=== PATIENT | female | born 1930 | race Caucasian/White ===

== ENCOUNTER 2016-10-10 13:31 | Inpatient (IN) | payer MEDICARE, OTHER, MEDICAID ==
[~2016-10-10] VITALS: Ht 147.3 cm; Wt 49.0 kg
[~2016-10-10 13:31] MED LIST: ASPI-973 PO; ESCI5TAB PO; GEMF600T3 PO; LEVO50TA6 PO; METF500T4 PO; SLO64 PO
[2016-10-10 13:47] VITALS: BP 140/60; PULSE 78; O2SAT 99
--- NOTE | 2016-10-10 14:08 | ED.REPORT ---
HPI-Trauma Minor / Fall Date of Service Oct 10, 2016 ED Provider: Fatou Sebastián Patient is an 86 year old female who presents to the ED via EMS s/p a ground level fall at [facility] at 1315 today. She was trying to sit down in her chair but only made it on nursing home causing her to fall. She hit her head and is having R knee pain that is exacerbated by movement. She denies neck pain, abdominal pain, hip pain, headache, LOC, or any other symptoms. Patient does not take blood thinners. She last ate at 1100. Nursing Notes Stated Complaint: GL FALL Chief Complaint: Multiple Trauma/Fall Nursing Notes Reviewed: Yes Allergies: Coded Allergies: Penicillins (Verified Allergy, Severe, 02/01/15) Scheduled Aspirin (Aspirin) 81 Mg Tablet.dr 81 MG PO DAILY Escitalopram Oxalate (Lexapro) 5 Mg Tablet 10 MG PO HS Gemfibrozil (Gemfibrozil) 600 Mg Tablet 600 MG PO BID Levothyroxine (Levothyroxine) 50 Mcg Tablet 50 MCG PO DAILY Magnesium Chloride (Slow-Mag) 64 Mg Tablet 64 MG PO DAILY Metformin (Metformin) 500 Mg Tablet 1,000 MG PO BID General Time Seen by MD: 14:08 Chief Complaint Fall Hx Obtained From: Patient, Daughter Arrived By: Ambulance Onset Occurred: Just prior to arrival Symptom Duration: Since onset Past Medical History Past Medical History Notes: PCP: Dr. Leiva but the pt prefers Dr. Dewey Past Medical History 1. Obstructive sleep apnea 2. Type 2 diabetes mellitus 3. Hypertension 4. Hyperlipidemia 5. Osteoporosis 6. History of multiple UTIs in the past 7. History of hyponatremia and hypokalemia 8. Vaginal prolapse 9. Dementia Reports: Depression, Thyroid disease Past Surgical History 1. Hysterectomy 2. Appendectomy 3. Tonsillectomy Family History Noncontributory Smoking History Never Smoker Social History [facility] in [facility]. Alcohol Use: Denies alcohol use Drug Use: Denies drug use Other Social History: Local resident Occupation Former [employer] worker Ambulatory Status Independent Review of Systems Musculoskeletal: Reports: Joint pain (R knee, no hip pain), Denies: Neck pain Neurologic: Denies: Change LOC, Headache Complete sys rev & neg: except as marked. GI: Denies: Abdominal pain Physical Exam Initial Vital Signs Vital Signs (First) Date Time Temp Pulse Resp B/P Pulse Ox O2 Delivery O2 Flow Rate FiO2 10/10/16 13:47 36.9 78 140/60 99 Room Air Initial VS: Reviewed Head / Eyes: Atraumatic, Normocephalic, PERRL Respiratory: No respiratory distress Abdomen / GI: Soft, Non-tender Skin: Warm, Dry Neurologic: Alert, Oriented, Nonfocal Psychiatric: Mood/affect normal, Behavior normal, Normal thought content General/Constitutional: Awake, Alert, Well developed Neck: Atraumatic, Supple Right Hip: Negative: Deformity present, Leg shortened, Open fracture present, Swelling present..., Tenderness present..., Warmth present Right Knee: Positive: ROM painful Interpretation & Diagnostics Lab Results Interpretation Result Diagram: 10/10/16 1545 10/10/16 1545 Test 10/10/16 15:02 10/10/16 15:15 10/10/16 15:45 Urine Color Yellow (YELLOW) Urine Appearance Clear (CLEAR,HAZY) Urine pH 5.5 (5.0-8.0) Urine Specific [place] 1.025 (1.003-1.035) Urine Protein Tracemg/dL (NEG,TRACE) Urine Glucose (UA) Negativemg/dL (NEGATIVE) Urine Ketones 15mg/dL (NEGATIVE) Urine Occult Blood Trace (NEGATIVE) Urine Nitrite Positive (NEGATIVE) Urine Bilirubin Negative (NEGATIVE) Urine Urobilinogen Normalmg/dL (NORMAL) Urine Leukocyte Esterase Negative (NEGATIVE) Urine RBC 0-2/hpf (0-2) Urine WBC 0-5/hpf (0-5) Urine Epithelial Cells Few/hpf (NONE-MOD) Urine Crystals None seen (NONE SEEN) Urine Bacteria Many/hpf (NONE-FEW) Urine Hyaline Casts None/lpf (NONE) Urine Granular Casts None seen (NONE SEEN) Urine Waxy Casts None seen (NONE SEEN) Urine Red Blood Cell Casts None seen (NONE SEEN) Urine White Blood Cell Casts None seen (NONE SEEN) Urine Mucus None seen (None Seen) Urine Trichomonas None seen (NONE SEEN) Urine Yeast None (NONE SEEN) Urinalysis Comment None Urine Culture Reflexed Indicated Hold Urine Received (Received) White Blood Count 6.3th/mm3 (3.8-10.1) Red Blood Count 3.63mil/mm3 (3.90-5.20) Hemoglobin 10.7g/dL (12.0-15.6) Hematocrit 33.0% (35.0-46.0) Mean Corpuscular Volume 90.9fL (81-100) Mean Corpuscular Hemoglobin 29.5pg (27.0-35.0) Mean Corpuscular Hemoglobin Concent 32.4% (32.0-37.0) Red Cell Distribution Width 14.6% (12.3-15.4) Platelet Count 250bil/L (150-400) Neutrophils (%) (Auto) 65.3% (40-74) Lymphocytes (%) (Auto) 23.0% (14-46) Monocytes (%) (Auto) 10.6% (4-12) Eosinophils (%) (Auto) 0.3% (0-5) Basophils (%) (Auto) 0.3% (0-3) Sodium Level 137mEq/L (134-144) Potassium Level 4.3mEq/L (3.5-5.2) Chloride Level 94mEq/L (97-108) Carbon Dioxide Level 16mmol/L (18-29) Blood Urea Nitrogen 32mg/dL (8-27) Creatinine 1.30mg/dL (0.57-1.00) Estimat Glomerular Filtration Rate 56mL/min (>59) Glucose Level 60mg/dL (60-99) Calcium Level 9.0mg/dL (8.5-10.1) Total Bilirubin 0.2mg/dL (0.0-1.2) Aspartate Amino Transf (AST/SGOT) 15U/L (0-50) Alanine Aminotransferase (ALT/SGPT) 10U/L (0-32) Alkaline Phosphatase 44U/L (25-165) Total Protein 6.8g/dL (6.4-8.4) Albumin 4.3g/dL (3.4-5.0) ECG Interpretation ECG Interpretation: Sinus rate 69 Time: 15:39 Interpreted by: ED physician X-Ray Chest Interpretation Chest Xray Interpretation: IMPRESSION: No definite trauma found. Dictated by: Cody Fuentes M.D. on 10/10/2016 at 15:02 Approved by: Cody Fuentes M.D. on 10/10/2016 at 15:03 View: Portable, 1 view Interpretation / Wet Read by: Interpret - Radiologist X-Ray Interpretation Xray Interpretation: IMPRESSION: Right intertrochanteric hip fracture in near-anatomic alignment. Dictated by: Cody Fuentes M.D. on 10/10/2016 at 15:03 Approved by: Cody Fuentes M.D. on 10/10/2016 at 15:04 Study Performed: X-RAY PELVIS W/LAT HIP (RT) X-Ray Ordered: Pelvis Interpretation / Wet Read by: Interpret - Radiologist Re-Eval/Medical Decision Re-Evaluation/Progress : Time of Eval: 15:04 Re-Evaluation/Progress Note: Discussed imaging results and need for admission. Patient understands and agrees with plan. All questions addressed at this time. Consultation : Referral / Consult Name: Leona Bryson MD Consulted With: Hospitalist Call Returned at: 16:03 Fabrication Department Supervisor: Will see patient, Agrees with eval, Agrees with plan, Accepts admit Note: Discussed patient's case. Accepts admit. Counseled Regarding: Diagnosis, Lab results, Need for admission Discharge & Departure Impression: Primary Impression: Intertrochanteric fracture of right hip Encounter type: initial encounter Fracture type: closed Qualified Code: S72.141A - Displaced intertrochanteric fracture of right femur, initial encounter for closed fracture Disposition: ADMITTED TO HOSPITAL Referrals: Hollie Leiva (PCP) Scribe Attestation Portions of this note were transcribed by Stephanie Spring. I, Dr. Lainez personally performed the history, physical exam and medical decision-making; I reviewed and confirmed the accuracy of the information in the transcribed note. Signed by: Stephanie Spring 10/10/16, 4032 copies to: Hollie Leiva Kirk H MD Oct 10, 2016 14:08 STEPHANIE SPRING Oct 10, 2016 14:15
[2016-10-10] MEDS ORDERED: HYDROmorphone 0.5 mg/0.5 mL iSecure Syringe IVPUSH PRN (15:05)
[2016-10-10] MEDS ORDERED: Ondansetron 2 mg/mL 2 mL Inj IV PRN (15:05)
--- NOTE | 2016-10-10 15:05 | DRSVH ---
PROCEDURE: X-RAY CHEST ONE VIEW ([id number]) INDICATIONS: trauma TECHNIQUE: One view of the chest was acquired. COMPARISON: [facility], CR, XR CHEST 1VW (PORTABLE), 07/28/2016, 16:12. [facility], CT, CHEST/ABD/PELVIS/ WO CON (PNL), 01/04/2015, 12:33. [facility], CT, CHEST W/O CONTRAST, 01/24/2014, 9:33. [facility], CT, CHEST/ABD/PELVIS W/CON (PNL), 12/28/2013, 12: 45. FINDINGS: Surgical changes and devices: None. Lungs and pleura: No pleural effusions or pneumothorax. Lungs are clear. Mediastinum: Mediastinal contours appear normal. Heart size is normal. Bones and chest wall: No suspicious bony lesions. Overlying soft tissues appear unremarkable. IMPRESSION: No definite trauma found. Dictated by: Cody Fuentes M.D. on 10/10/2016 at 15:02 Approved by: Cody Fuentes M.D. on 10/10/2016 at 15:03
--- NOTE | 2016-10-10 15:06 | DRSVH ---
PROCEDURE: X-RAY PELVIS W/LAT HIP (RT) ([id number]) INDICATIONS: trauma TECHNIQUE: AP pelvis with lateral view(s) of the right hip(s). COMPARISON: None. FINDINGS: Bones: No dislocations. Pelvic ring appears intact. No suspicious bony lesions. There is an inter trochanteric right hip fracture, minimally displaced Soft tissues: The visualized bowel gas pattern is normal. No suspicious soft tissue calcifications. IMPRESSION: Right intertrochanteric hip fracture in near-anatomic alignment. Dictated by: Cody Fuentes M.D. on 10/10/2016 at 15:03 Approved by: Cody Fuentes M.D. on 10/10/2016 at 15:04
[2016-10-10] MEDS ORDERED: Acetaminophen IV 1,000 MG in IV Premix 1 EACH IV ONE (15:10)
[2016-10-10 15:23] VITALS: BP 137/56; PULSE 72; O2SAT 100
[2016-10-10 15:48] LABS: APPEARANCE,URINE CLEAR (CLEAR,HAZY); COLOR,URINE YELLOW (YELLOW); PH,URINE 5.5 (5.0-8.0)
[2016-10-10 15:59] LABS: OCCULT BLOOD,URINE TRACE (NEGATIVE); UROBILINOGEN,URINE NORMAL (NORMAL)
[2016-10-10 16:05] LABS: BASOPHILS % (AUTO) 0.3 % (0-3); EOSINOPHILS % (AUTO) 0.3 % (0-5); MONOCYTES % (AUTO) 10.6 % (4-12); Mean Corpuscular Hemoglobin 29.5 pg (27.0-35.0); Mean Corpuscular Volume 90.9 fL (81-100); NEUTROPHILS % (AUTO) 65.3 % (40-74); Platelet Count 250 bil/L (150-400)
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
[2016-10-10] MEDS: 0.9% Sodium Chloride 1,000 ML IV SCH (17:12)
[2016-10-10] MEDS ORDERED: Alum-Mag Hydrox-Simeth 30 mL Suspension PO PRN (17:15)
[2016-10-10] MEDS ORDERED: Ondansetron 2 mg/mL 2 mL Inj IVPUSH PRN (17:15)
[2016-10-10] MEDS ORDERED: 0.9% Sodium Chloride 1,000 ML IV SCH (17:20)
[2016-10-10] MEDS ORDERED: Polyethylene Glycol (PEG) 17 Gm Powder PO PRN (17:20)
[2016-10-10] MEDS ORDERED: MELA1TAB9 PO (17:43)
[2016-10-10] MEDS ORDERED: ZOLP5TAB6 PO (17:43)
[2016-10-10 17:52] VITALS: BP 155/73; PULSE 61; RESP 16; O2SAT 100
--- NOTE | 2016-10-10 19:00 | NUR ---
ADMIT TO [facility] Patient arrived to rm 1016 on ER [facility], was transferred over to hospital bed with slide board and 3 person assist. Alert and oriented to self, unable to recall time or place. Hx of dementia at baseline. Points to R groin/outer thigh area when asked about pain, states it "hurts a little", facial grimacing noted with movement. Repositioned patient and placed ice pack to R thigh. Admission assessment and med rec completed by admissions nurse. [place] alarm in place on bed. IV fluids imitated. BG was 61 @ 1800, gave patient OJ and had her order dinner. Daughter at bedside with patient.
[2016-10-10] MEDS ORDERED: Magnesium Sulf 2 Gm/50mL Water 2 GM in IV Premix 1 EACH IV ONE (19:05)
--- NOTE | 2016-10-10 19:28 | PCM.HPMED ---
Subjective Date of Service Oct 10, 2016 Primary Provider: Admitting Physician: Leona Bryson MD Primary Care Physician: Weston Moreira PA-C Attending Physician: Leona Bryson MD Admit Status: From the Emergency Department Chief Complaint: She was at [employer] this afternoon and as she sat down on the bench she misjudged and was only snf on the bench. This caused her to fall onto her right hip on the ground. Her daughter tried to get her up with help but she had such severe pain that they left her on the ground keeping her comfortable until the medics arrived. Her x-ray in the emergency department shows an intertrochanteric fracture of the right hip. History of Present Illness: She was having a good day, going out with her daughter to get coffee at [employer] on their way to shopping today. She had no particular symptoms other than her chronic memory loss/dementia. She misjudged the seating arrangement and fell onto the floor. She has been seen by Dr. Gamble from the orthopedic service and will likely undergo ORIF or hip replacement in the morning. Her medical history includes diabetes mellitus type II, hypothyroidism, depression, dementia , hypomagnesemia, hyper lipidemia. She has been stable on her current medications for some time. She lives in the [facility] apartment complex in [place]. Her daughter visits her regularly and was taking her out for a looked forward to shopping trip today Review of Systems: There has been no coughing, shortness breath, chest pain, nausea, vomiting, diarrhea, blood in stool, bleeding, joint pain other than the new fracture, seizures, headaches, sore throat, dysuria, new allergies, hearing loss. Positive for joint pain and memory loss. Allergies Coded Allergies: Penicillins (Verified Allergy, Severe, 02/01/15) Home Medications Gemfibrozil Levothyroxine Metformin Slow-Mag Lexapro PMH Diabetes mellitus type 2 Hypothyroidism Hyperlipidemia Hypomagnesemia Depression Surgical History Hysterectomy Family History No history of osteoporosis or hip fracture. Her mother of old age. Social History Occupation: she is retired from the [employer] Hx Alcohol Use: No Hx Substance Use: No Hx Tobacco Use: No Smoking Status: Never Smoker Living Arrangement: Independent Alf Exam Vital Signs Vital Sign - Last Date Time Temp Pulse Resp B/P Pulse Ox O2 Delivery O2 Flow Rate FiO2 10/10/16 15:23 36.7 72 137/56 100 Room Air Exam Alert, oriented to her name and hospital location not to the date, no apparent distress. She is able to tell me emphatically that she "does not care about Rich kauffman". She is able to laugh wholeheartedly at a humorous story about Pres. kauffman. Pupils are equally round and reactive to light and accommodation. Extraocular muscles are intact. Sclerae are pink and nonicteric. Throat looks normal. No lymph nodes are felt head, neck, supraclavicular area. JVD is less than 6 cm. No carotid bruits are heard. No thyromegaly is present. Heart is regular rate and rhythm without murmur. Lungs are clear to auscultation bilaterally Abdomen is soft, nontender, no organomegaly or other masses. Extremities have no ankle edema. She is tender over the right hip She has a José catheter inserted. There is no rash or jaundice. Cranial nerves II through XII tested and intact, there is no tremor. Motor function is 4 out of 5 in the other 3 extremities. Babinskis are downgoing bilaterally. Lab and Diagnostics Labs Magnesium level is 1.5 Urinalysis shows positive nitrate, negative leukocyte esterase, 0-5 wbc's, 0-2 RBC. Result Diagram: 10/10/16 1545 10/10/16 1545 X-Rays, CTs and MRIs X-RAY CHEST ONE VIEW ([id number]) INDICATIONS: trauma TECHNIQUE: One view of the chest was acquired. COMPARISON: [facility], CR, XR CHEST 1VW (PORTABLE), 07/28/2016, 16 :12. [facility], CT, CHEST/ABD/PELVIS/ WO CON (PNL), 01/04/2015, 12: 33. [facility], CT, CHEST W/O CONTRAST, 01/24/2014, 9:33. [facility], CT, CHEST/ABD/PELVIS W/CON (PNL), 12/28/2013, 12:45. FINDINGS: Surgical changes and devices: None. Lungs and pleura: No pleural effusions or pneumothorax. Lungs are clear. Mediastinum: Mediastinal contours appear normal. Heart size is normal. Bones and chest wall: No suspicious bony lesions. Overlying soft tissues appear unremarkable. IMPRESSION: No definite trauma found. Dictated by: Cody Fuentes M.D Additional Diagnostics: X-RAY PELVIS W/LAT HIP (RT) ([id number]) INDICATIONS: trauma TECHNIQUE: AP pelvis with lateral view(s) of the right hip(s). COMPARISON: None. FINDINGS: Bones: No dislocations. Pelvic ring appears intact. No suspicious bony lesions. There is an intertrochanteric right hip fracture, minimally displaced Soft tissues: The visualized bowel gas pattern is normal. No suspicious soft tissue calcifications. IMPRESSION: Right intertrochanteric hip fracture in near-anatomic alignment. Dictated by: Cody Fuentes M.D Assessment & Plan 1 - Right Hip Fracture -Near anatomically aligned intertrochanteric fracture -Consult with Dr. Gamble and planned surgery tomorrow. -Nothing by mouth after midnight tonight. -IV fluids ordered for nothing by mouth status -Starting hemoglobin is 10.7. 2 - Alzheimers Dementia -No currently worsening symptoms. 3 - Diabetes Mellitus II -Continue metformin and follow Accu-Cheks with appropriate insulin use while nothing by mouth. 4 - Hypothyroidism -Continue levothyroxine. 5 - Depression -Continue citalopram. 6 - Hyperlipidemia -Continue Lopid. 7 - Hypomagnesemia -Magnesium level tonight is 1.5 so will add additional IV supplementation and recheck a level in the morning. 8. Mild Normocytic Anemia -Check iron level and B12. Thor Bryson MD Pain Evaluation: Adequate Pain Control Resuscitation Status: CPR: Attempt Resuscitation Leona Bryson MD Oct 10, 2016 17:28
[2016-10-10 21:50] VITALS: BP 129/70; PULSE 62; RESP 16; O2SAT 92
[2016-10-11] VITALS (14 sets, daily range): BP systolic 83–123; BP diastolic 41–74; PULSE 64–84; RESP 12–18; O2SAT 95–100
--- NOTE | 2016-10-11 01:04 | NUR ---
Blood Glucose Admitted to unit at 1745 per shift report, patient alert and oriented to self. Blood glucose 60 given 300ml orange juice. Blood sugar juan to 90. Encouraged patient to take in an additional 120ml of Ice cream before being put on NPO for surgery this am.
[2016-10-11] MEDS: 0.9% Sodium Chloride 1,000 ML IV SCH (03:12)
--- NOTE | 2016-10-11 04:55 | NUR ---
Blood Glucose Patient NPO for surgery, Blood glucose remains low, 77 this am. Night hospitalist paged requesting IV fluids containing Dextrose. Awaiting further instructions.
[2016-10-11] MEDS ORDERED: Dextrose 5% 0.45% NaCl 1,000 ML IV SCH (05:45)
[2016-10-11 06:25] LABS: BASOPHILS % (AUTO) 0.3 % (0-3); EOSINOPHILS % (AUTO) 1.3 % (0-5); MONOCYTES % (AUTO) 14.4 % (4-12); Mean Corpuscular Volume 90.5 fL (81-100); NEUTROPHILS % (AUTO) 64.3 % (40-74); Platelet Count 233 bil/L (150-400)
[2016-10-11] MEDS ORDERED: Phenylephrine 10,000 mCg/mL Inj ONE (06:29)
[2016-10-11] MEDS ORDERED: fentaNYL-PF 50 mCg/mL 2 mL Inj ONE (06:29)
[2016-10-11] MEDS ORDERED: Clindamycin Inj 600 MG in IV Premix 1 EACH IV ONE ×2 (08:30→12:00)
[2016-10-11 09:51] LABS: INR 1.16 ratio
[2016-10-11] MEDS: D5 0.45% NaCl + KCl 20 mEq/L 1,000 ML IV SCH (10:41)
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
--- NOTE | 2016-10-11 12:50 | NUR ---
TRANSFER TO OR Patient's IV was saline locked, SCD's in place. Report given to JAVED Wong. Patient's daughter arrived and signed consent for surgery. Anesthesia in and talked with patient an patient's daughter. 2 RN's took patient up to OR in hospital bed.
[2016-10-11] MEDS ORDERED: Lactated Ringer's 1,000 ML IV ONE ×2 (12:58→13:58)
[2016-10-11] MEDS ORDERED: Bupivacaine 0.5%/EPI 50 mL Inj INFILTRATE ONE (13:54)
[2016-10-11] MEDS ORDERED: Lactated Ringer's 500 ML IV PRN (14:04)
[2016-10-11] MEDS ORDERED: Lactated Ringer's 1,000 ML IV SCH (14:04)
[2016-10-11] MEDS ORDERED: EPHEDrine Sulfate 50 mg/mL Inj IVPUSH PRN (14:05)
[2016-10-11] MEDS ORDERED: Labetalol 5 mg/mL 4 mL Inj IV PRN (14:05)
[2016-10-11] MEDS ORDERED: MetoCLOpramide 5 mg/mL 2 mL Inj IVPUSH PRN (14:05)
[2016-10-11] MEDS ORDERED: Phenylephrine 10,000 mCg/mL Inj IVPUSH PRN (14:05)
[2016-10-11] MEDS ORDERED: Ondansetron 2 mg/mL 2 mL Inj IVPUSH PRN (14:05)
[2016-10-11] MEDS ORDERED: fentaNYL-PF 50 mCg/mL 2 mL Inj IVPUSH PRN (14:05)
[2016-10-11] MEDS ORDERED: HYDROmorphone 1 mg/mL Inj IVPUSH PRN (14:05)
[2016-10-11] MEDS ORDERED: Dexamethasone 4 mg/mL Inj IVPUSH PRN (14:05)
[2016-10-11] MEDS ORDERED: Atropine 0.4 mg/mL Inj IVPUSH PRN (14:05)
[2016-10-11] MEDS ORDERED: hydrALAZINE 20 mg/mL Inj IVPUSH PRN (14:05)
--- NOTE | 2016-10-11 15:14 | PCM.ANEP1 ---
Post Anesthesia Phase 1 PACU Phase 1 Assessment Date of Service: Oct 11, 2016 Vital Signs Vital Signs Date Time Temp Pulse Resp B/P Pulse Ox O2 Delivery O2 Flow Rate FiO2 10/11/16 15:12 66 17 83/41 100 Simple Mask 8 10/11/16 15:07 74 17 96/54 100 Simple Mask 8 10/11/16 15:01 36.3 74 15 112/54 100 Simple Mask 8 10/11/16 10:59 36.7 69 18 123/74 98 Room Air Anesthetic Administered: SAB Level of Alertness: Awake, talking LAM's with Equal Strength: No (adfadsf) Pain: No Pain Scale Score: 6 Airway Device: Nasal Airway Lungs: Clear to Auscultation, Normal Air Movement Caleb Edmond MD Oct 11, 2016 15:14
--- NOTE | 2016-10-11 15:15 | PCM.ORTHOB ---
Immediate Operative Note Date of Service: Oct 11, 2016 Pre Operative Diagnosis Right hip intertrochanteric fracture Post Operative Diagnosis Same Procedure Right hip fracture intramedullary femoral nailing Surgeon Surgeon: Rinku Gamble M.D. Assistants: Ashish Escobar PA-C Findings Right hip mildly comminuted, 2 part, displaced base of femoral neck/ intertrochanteric fracture satisfactorily reduced and stabilized with Shakeel Biomet short 130 9 mm x 180 mm diameter Affixus hip fracture intramedullary nail with 100 mm x 10.5 mm hip fracture nail lag screw and statically locked with a 34 mm x 5 mm cortical bone screw. Intraoperative fluoroscopic image intensification confirmed satisfactory reduction and that there was no intra- articular violation from our placed hardware. Grafts, Implants: Implants-See Implant Record Complications There were no periprocedural complications identified. Condition Stable Anesthetic Administered: SAB Drains: None Catheters: Urethral 2 Way José Output, Estimated Blood Loss: 100 Blood Admin during surgery: No Surgical Cast or Splint: None Surgical Specimen Removed: No Surgical Specimen sent to Path: No Post Operative Plan The patient will be mobilized immediately. She will be restricted to touchdown weightbearing through her right lower extremity for the next 6 weeks postop. The patient will be started on Lovenox 40 mg subcutaneous daily for the first 2 weeks postop and then converted to enteric-coated aspirin 325 mg by mouth twice a day for an additional 4 weeks when the Lovenox is discontinued. The patient may have her surgical skin una removed on or after postoperative day #12. The patient should be seen in the orthopedic outpatient clinic when 2 weeks postop repair repeat x-rays of the right hip will be obtained at 6 weeks postop when I anticipate advancing the patient's weightbearing status and hip fracture rehabilitation. Rinku Gamble MD Oct 11, 2016 15:15
--- NOTE | 2016-10-11 15:20 | PCM.ANEP2 ---
Post Anesthesia Evaluation ASA/CMS Post Anesthesia VS in Patient's Normal Range?: Yes Resp Stable; Airway Patent?: Yes CV Function & Hydration Stable: Yes Mental Status Recovered?: Yes Pain control Satisfactory?: Yes N/V Control Satisfactory?: Yes Caleb Edmond MD Oct 11, 2016 15:20
--- NOTE | 2016-10-11 15:27 | PCM.ORTHOP ---
Orthopedic Operative Report Date of Service: Oct 11, 2016 Pre Operative Diagnosis Right hip intertrochanteric fracture Post Operative Diagnosis Same Procedure Right hip fracture intramedullary femoral nailing Surgeon Surgeon: Rinku Gamble M.D. Assistants: Ashish Escobar PA-C Indication for Procedure The patient is a 86-year-old woman who sustained a closed, isolated and neurovascularly intact displaced right hip intertrochanteric/base of neck fracture in a ground-level fall when she fell off a chair at a local restaurant 10/10/2016. The patient presents for right hip fracture nailing of her intertrochanteric hip fracture. Findings Right hip mildly comminuted, 2 part, displaced base of femoral neck/ intertrochanteric fracture satisfactorily reduced and stabilized with Shakeel Biomet short 130 9 mm x 180 mm diameter Affixus hip fracture intramedullary nail with 100 mm x 10.5 mm hip fracture nail lag screw and statically locked with a 34 mm x 5 mm cortical bone screw. Intraoperative fluoroscopic image intensification confirmed satisfactory reduction and that there was no intra- articular violation from our placed hardware. Details of Procedure The patient was brought to the OR where a spinal anesthetic was administered by the anesthesia service. She was then placed in the supine position on to the hip fracture table and a closed reduction maneuver of the patient's right hip was performed under fluoroscopic guidance. The patient's right lower extremity was then placed in gentle in-line boot traction and the right hip and lower extremity received a trauma scrub. Right lower extremity were then prepped and draped in usual sterile fashion. The procedure was performed under fluoroscopic guidance. A oblique 4 cm incision was taken from the tip of the greater trochanter proximally in line with the gluteal fibers which were split longitudinally in direction of their fibers to be able to palpate the tip of the right hip greater trochanter. We then placed a threaded tip guidewire just medial to the tip of the greater trochanter and in line with the center of the femoral shaft on AP and lateral views. We seated the guidewire into the intramedullary canal from this entry site and used the Shakeel Biomet Affixus one -step cannulated reamer to prepare the intramedullary opening for the hip fracture nail. The cannulated drill was advanced over the guidewire to the level of lesser trochanter and then removed. We inserted over the guidewire a Shakeel Biomet Affixus 130 9 mm x 180 mm short right hip fracture nail. We seated the nail to the appropriate depth and adjusted the anteversion of the nail using the attached nail introduction jig. A percutaneous incision was made distal to the nail entry incision along the proximal lateral thigh and the appropriate cannulas for placement of the hip fracture nail lag screw were inserted through the jig, percutaneous incision, fascial soren to the level of the bone at the intertrochanteric level. A threaded tip guidewire was inserted through the cannulas up through the center lower half of the femoral neck and into the subchondral bone of the femoral head. The guidewire was measured and we used the triple reamer drill to create the osseous channel for the 10.5 mm x 100 mm hip fracture lag screw nail. The lag screw was inserted through the lateral femoral cortex, nail and into the subchondral bone of the femoral head. Intraoperative fluoroscopic views confirm satisfactory placement and fixation. The lag screw was compressed and the set screw of the proximal nail tightened to allow for dynamic compression. A third, 1 cm, percutaneous incision was made in the proximal lateral thigh to the appropriate level for placement of our distal locking screw. The appropriate cannulas were placed through the nail jig and we subsequently drilled and placed a 5 mm x 34 mm cortical bone screw through the lateral femoral cortex, nail and medial femoral cortex of the proximal femoral diaphysis. The nail jig was removed and final intraoperative fluoroscopic views were obtained confirming satisfactory reduction, fixation and that there was no intra-articular violation from our placed hardware. All 3 wounds were thoroughly irrigated and closed. We used running #1 Vicryl for repair of the gluteal fascia and deep subcutaneous tissues. We used 2-0 Vicryl for closure of the subcutaneous tissues and all 3 wounds. [place] were used to close the skin. The wounds were infiltrated with 30 mL of 0.5% Marcaine with epinephrine and dressed with Xeroform and dry gauze dressings. The patient was gently transferred to her postoperative bed and taken back to PACU in stable and satisfactory condition. There were no complications. The patient tolerated the procedure well. Grafts, Implants: Implants-See Implant Record Complications There were no periprocedural complications identified. Condition Stable Anesthetic Administered: SAB Drains: None Catheters: Urethral 2 Way José Output, Estimated Blood Loss: 100 Blood Admin during surgery: No Surgical Cast or Splint: None Surgical Specimen Removed: No Specimen sent to Pathology: No Post Operative Plan The patient will be mobilized immediately. She will be restricted to touchdown weightbearing through her right lower extremity for the next 6 weeks postop. The patient will be started on Lovenox 40 mg subcutaneous daily for the first 2 weeks postop and then converted to enteric-coated aspirin 325 mg by mouth twice a day for an additional 4 weeks when the Lovenox is discontinued. The patient may have her surgical skin una removed on or after postoperative day #12. The patient should be seen in the orthopedic outpatient clinic when 2 weeks postop repair repeat x-rays of the right hip will be obtained at 6 weeks postop when I anticipate advancing the patient's weightbearing status and hip fracture rehabilitation. copies to: Weston Moreira PA-C; Rinku Gamble MD, Michael G.E MD Oct 11, 2016 15:27
--- NOTE | 2016-10-11 15:50 | NUR ---
SNF choice list provided. Carley Arciniega MSW
--- NOTE | 2016-10-11 16:05 | NUR ---
Social Work- Initial Assessment Data: Pt is a 86 year old female admitted 10/10/16 for right intertrochanteric fracture per H&P. Pts insurance is Medicare and [employer]. Pts PCP is Weston Moreira PA-C. EMR reviewed. HAROON met with patients daughter and DPOA Cynthia Guajardo [phone] at the bedside to discuss discharge planning, HAROON role explained. Pt was not present at this assessment as she was in the OR. Pt resides at [facility] in [place], [place] where she receives assistance with her ADLs. Pt uses a walker at baseline and does not drive. Pt has no SNF history. Pt has received HH from [facility] 2-3 years prior. 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 Pt has DPOA on file. Pts daughter anticipates pt will be discharged to a SNF. HAROON provided SNF choice list. Choices include [facility], [facility], or Medicare contracted SNFs near [place]. HAROON will pursue SNF placement pending PT recommendation and clinical course. HAROON wrote phone number on the whiteboard. HAROON will continue to follow. Assessment: Pt who may benefit from SNF. Plan: Pts daughter anticipates pt will discharge to a SNF. SW will pursue SNF placement pending PT recommendation and clinical course. HAROON will continue to follow. Carley Stevenson CUTTER DOWN Addendum: 10/11/16 at 1605 by WILMA STEVENSON SS Amended: Links added.
--- NOTE | 2016-10-11 18:11 | DRSVH ---
PROCEDURE: X-RAY RIGHT FEMUR, TWO VIEWS ([id number]) INDICATIONS: postop TECHNIQUE: 2 views of the femur were acquired. COMPARISON: [facility], CR, XR PELVIS W LATERAL HIP RT, 10/10/2016, 14:20. FINDINGS: Bones: The basicervical fracture of the right femur shows a short intramedullary lul lasted mid shaft level in the Mart's type screw extending through the lul into the right femoral head. Fragments a re held in anatomic position. There skin una at the operative site. Soft tissues: No suspicious soft tissue calcifications or masses. IMPRESSION: Anatomic reduction of the basicervical femoral fracture on the right with a short intrame dullary lul and a screw. Dictated by: Carlin Rizo M.D. on 10/11/2016 at 18:07 Approved by: Carlin Rizo M.D. on 10/11/2016 at 18:09
--- NOTE | 2016-10-11 20:26 | PCM.PNMED ---
Subjective Date of Service Oct 11, 2016 Subjective Patient was seen preoperatively. Patient is pleasantly demented and complains of some hip pain. Otherwise she has no new complaints. Exam Vital Signs Vital Sign - Last Date Time Temp Pulse Resp B/P Pulse Ox O2 Delivery O2 Flow Rate FiO2 10/11/16 16:07 35.6 74 16 113/66 95 Room Air 10/11/16 15:33 6 Intake and Output 10/10/16 10/10/16 10/11/16 Cumulative From/Thru 15:00 23:00 07:00 10/10/16 13:47 - 10/11/16 06:01 Intake Total 200 ml 963 ml 1163 ml Output Total 250 ml 675 ml 925 ml Balance -50 ml 288 ml 238 ml Intake Oral 200 ml 120 ml 320 ml IV Total 843 ml 843 ml Output Urine Total 250 ml 675 ml 925 ml # Bowel Movements 0 0 Exam General: Patient is in no apparent distress and is pleasantly demented. HEENT: Head is atraumatic and normocephalic. Eyes: Pupils are equally round and reactive to light and accommodation. Extraocular muscles are intact. Sclera are white, anicteric. Subconjunctival mucosa is pink. Ears and nose are unremarkable. Oropharynx: There is no mucosal lesions, there is no thrush, there is no pharyngitis. Neck: Is supple, there are no nodes, or masses or tenderness. Chest: Is clear to auscultation and percussion. There are no rales, rhonchi, wheezes or rubs. Heart: Rate, rhythm is regular. There is no murmur, rub or gallop. Abdomen: Good bowel sounds are present. Abdomen is soft, nontender, no organomegaly or masses were appreciated. Extremities: Are symmetrical and well perfused. There is no edema, there is no cellulitis, no rash. Neurologic: There are no focal neurological deficits. Cranial nerves II through XII are intact. There are no sensory or motor deficits. Psychiatric: Patients mood is calm and shows no sign of agitation. Patient is pleasantly demented Genital: Deferred Rectal: Deferred Lab and Diagnostics Result Diagram: 10/11/16 0610/11/16 06 Microbiology Name: JAZ CASTRO Age/Sex: 86/F Attend Dr: Leona Bryson MD Acct: [id number] Unit: [id number] Status: ADM IN Location: [facility] 1016-1 Re10/10/16 Disch: Specimen: [id number] Collected: 10/10/16 Status: RES Req#: [id number] Received: 10/10/16 Source: RANDOM Sp Desc : Subm Dr: Sebastián Lainez MD Ordered: URINE CULT Procedure Result Verified Site Microbiology MURTAZA CULT URINE Preliminary 10/11/16 No growth to date X-Rays, CTs and MRIs X-RAY CHEST ONE VIEW ([id number]) INDICATIONS: trauma TECHNIQUE: One view of the chest was acquired. COMPARISON: [facility], CR, XR CHEST 1VW (PORTABLE), 07/28/2016, 16 :12. [facility], CT, CHEST/ABD/PELVIS/ WO CON (PNL), 01/04/2015, 12: 33. [facility], CT, CHEST W/O CONTRAST, 01/24/2014, 9:33. [facility], CT, CHEST/ABD/PELVIS W/CON (PNL), 12/28/2013, 12:45. FINDINGS: Surgical changes and devices: None. Lungs and pleura: No pleural effusions or pneumothorax. Lungs are clear. Mediastinum: Mediastinal contours appear normal. Heart size is normal. Bones and chest wall: No suspicious bony lesions. Overlying soft tissues appear unremarkable. IMPRESSION: No definite trauma found. Dictated by: Cody Fuentes M.D Additional Diagnostics X-RAY PELVIS W/LAT HIP (RT) ([id number]) INDICATIONS: trauma TECHNIQUE: AP pelvis with lateral view(s) of the right hip(s). COMPARISON: None. FINDINGS: Bones: No dislocations. Pelvic ring appears intact. No suspicious bony lesions. There is an intertrochanteric right hip fracture, minimally displaced Soft tissues: The visualized bowel gas pattern is normal. No suspicious soft tissue calcifications. IMPRESSION: Right intertrochanteric hip fracture in near-anatomic alignment. Dictated by: Cody Fuentes M.D Assessment & Plan The patient is an 86-year-old white female with history of dementia who was at [employer] with her daughter the afternoon of admission. The patient attempted to sit down on the bench she misjudged and was only long-term on the bench. This caused her to fall onto her right hip on the ground. Her daughter tried to get her up with help but she had such severe pain that they left her on the ground keeping her comfortable until the medics arrived. Her x-ray in the emergency department shows an intertrochanteric fracture of the right hip. 1 - Right Hip Fracture -Near anatomically aligned intertrochanteric fracture -Consult with Dr. Gamble and planned surgery tomorrow. -Nothing by mouth after midnight tonight. -IV fluids ordered for nothing by mouth status preoperatively. Postoperatively patient will be placed on a diabetic diet as tolerated. -Starting hemoglobin is 10.7. 2 - Alzheimers Dementia -No currently worsening symptoms. -Patient is pleasantly confused 3 - Diabetes Mellitus II -Continue metformin and follow Accu-Cheks with appropriate insulin use while nothing by mouth. -We will begin a diabetic diet 4 - Hypothyroidism -Continue levothyroxine. -Check TSH 5 - Depression -Continue citalopram. 6 - Hyperlipidemia -Continue Lopid. 7 - Hypomagnesemia -Magnesium level was 1.5 on admission, so IV supplementation was given and recheck a level was normal. -We will continue to monitor and replete as needed 8. Mild Normocytic Anemia -Checked iron level is normal and B12 level which is pending. Disposition: Patient will need physical therapy and occupational therapy and then [facility] a few days. Pain Evaluation: Adequate Pain Control VTE Mechanical Devices: Intermittant Pneumatic CD Resuscitation Status: CPR: Attempt Resuscitation Shin Goff MD Oct 11, 2016 20:26
[2016-10-12] VITALS (7 sets, daily range): BP systolic 122–166; BP diastolic 68–78; PULSE 64–75; RESP 16–17; O2SAT 95–99
[2016-10-12] MEDS: Clindamycin Inj 600 MG in IV Premix 1 EACH IV SCH ×3 (01:30→16:30)
[2016-10-12] MEDS: D5 0.45% NaCl + KCl 20 mEq/L 1,000 ML IV SCH ×2 (03:41→12:50)
--- NOTE | 2016-10-12 06:20 | NUR ---
Confusion Pt woke up around 0300 and was confused and don't know where she is. Re-oriented the pt to present time place, person and present situation. Pt verbalizes understanding but still having mild episodes of confusion due to pt taking off her gown and the dressing on her right hip. IV ABx administered as scheduled and tylenol prn for pain. Pt denies chest pain, has been having mild sob due to o2 sats going down to 88%. Encouraged used of IS, coughing and deep breathing exercises. Will continue to monitor.
[2016-10-12 06:42] LABS: BASOPHILS % (AUTO) 0.1 % (0-3); EOSINOPHILS % (AUTO) 0.4 % (0-5); MONOCYTES % (AUTO) 13.4 % (4-12); Mean Corpuscular Hemoglobin 28.9 pg (27.0-35.0); Mean Corpuscular Volume 89.1 fL (81-100); NEUTROPHILS % (AUTO) 72.6 % (40-74); Platelet Count 214 bil/L (150-400)
[2016-10-12 06:59] LABS: Magnesium 1.3 mg/dL (1.6-2.6); Phosphorus 1.7 mg/dL (2.5-4.9)
[2016-10-12] MEDS ORDERED: Potassium Phos (mMol) Inj 30 MMOL in Dextrose 5% 500 ML IV ONE ×2 (08:10→15:00)
[2016-10-12] MEDS ORDERED: Magnesium Sulf 4 Gm/100 mL H2O 4 GM in IV Premix 1 EACH IV ONE (09:57)
[2016-10-12] MEDS: cefTRIAXone Inj 1,000 MG in Dextrose 5% Minibag Plus 50 ML IV SCH (10:03)
--- NOTE | 2016-10-12 11:32 | NUR ---
Social Work- Continued D/C Planning Data: EMR reviewed. Pt is on day 2 of hospitalization for right intertrochateric fracture per H&P. Pt is POD 1 from Surgery. PT evaluation pending. Anticipate pt will need SNF at discharge. SW asked UR Specialist to send referrals to [place] and SNF's in [place]. SW to follow up with pt's daughter once facilities have reviewed. Paperwork in chart. PASRR in folder. SW will continue to follow. Assessment: Pt who would benefit from SNF. Plan: [place] and facilities in [place] have been faxed for potential SNF placement. PT evaluation pending. SW to follow up with pt's daughter once facilities have reviewed. Paperwork in chart. PASRR in folder. SW will continue to follow. RICKI Jordan
--- NOTE | 2016-10-12 11:54 | NUR ---
Faxed referral to [facility] and [facility] at the [facility] per TESTING ENGINEER patient's daughter works in [place] and was interested in a facility in [facility].
--- NOTE | 2016-10-12 12:07 | PCM.PNORTH ---
Subjective Date of Service: Oct 12, 2016 Visit Information: Reason for Visit R Intertrochanteric Fx Surgery/Surgery Date RIGHT HIP NAILING 10/11/16 Post-Op Day # Date of Admission: Oct 10, 2016 at 16:24 Hospital Day # Subjective Status post day #1 right hip IM lul. Patient doing well. Pain is well controlled. She understands that she will try to work with physical therapy while here in the hospital, not optimistic about being able to utilize the walker with toe-touch weightbearing only as she is unable to put her full weight on her arms. No concerns or complaints, understands our plan to keep her in the hospital for 3 days well she recovers. Postop General: No Complaints, No Shortness of Breath, No Chest Pain Objective Exam Objective Patient is alert and oriented 3. Answering questions appropriately. Sitting up in bed and not in any acute distress today. Dressing is clean dry and intact. Patient able to wiggle toes. Calf is soft and nontender, pulses intact, sensation is full. Vital Signs and I/O Vital Sign - Last Date Time Temp Pulse Resp B/P Pulse Ox O2 Delivery O2 Flow Rate FiO2 10/12/16 10:04 64 10/12/16 08:45 36.7 17 166/70 95 Room Air 10/11/16 15:33 6 Intake and Output 10/11/16 10/11/16 10/12/16 Cumulative From/Thru 15:00 23:00 07:00 10/10/16 13:47 - 10/12/16 06:48 Intake Total 1780 ml 600 ml 1265 ml 4808 ml Output Total 100 ml 875 ml 1150 ml 3050 ml Balance 1680 ml -275 ml 115 ml 1758 ml Intake Oral 300 ml 620 ml IV Total 1780 ml 600 ml 965 ml 4188 ml Output Urine Total 775 ml 1150 ml 2850 ml Estimated Blood Loss 100 ml 100 ml 200 ml # Bowel Movements 0 0 0 Lab & Micro Results Laboratory Tests Test 10/12/16 06:05 White Blood Count 7.3th/mm3 (3.8-10.1) Red Blood Count 3.29mil/mm3 (3.90-5.20) Hemoglobin 9.5g/dL (12.0-15.6) Hematocrit 29.3% (35.0-46.0) Mean Corpuscular Volume 89.1fL (81-100) Mean Corpuscular Hemoglobin 28.9pg (27.0-35.0) Mean Corpuscular Hemoglobin Concent 32.4% (32.0-37.0) Red Cell Distribution Width 13.8% (12.3-15.4) Platelet Count 214bil/L (150-400) Neutrophils (%) (Auto) 72.6% (40-74) Lymphocytes (%) (Auto) 13.4% (14-46) Monocytes (%) (Auto) 13.4% (4-12) Eosinophils (%) (Auto) 0.4% (0-5) Basophils (%) (Auto) 0.1% (0-3) Sodium Level 135mEq/L (134-144) Potassium Level 3.2mEq/L (3.5-5.2) Chloride Level 99mEq/L (97-108) Carbon Dioxide Level 25mmol/L (18-29) Blood Urea Nitrogen 11mg/dL (8-27) Creatinine 0.87mg/dL (0.57-1.00) Estimat Glomerular Filtration Rate 88mL/min (>59) Glucose Level 165mg/dL (60-99) Calcium Level 8.1mg/dL (8.5-10.1) Phosphorus Level 1.7mg/dL (2.5-4.9) Magnesium Level 1.3mg/dL (1.6-2.6) Total Bilirubin 0.5mg/dL (0.0-1.2) Aspartate Amino Transf (AST/SGOT) 16U/L (0-50) Alanine Aminotransferase (ALT/SGPT) 7U/L (0-32) Alkaline Phosphatase 38U/L (25-165) Total Protein 5.4g/dL (6.4-8.4) Albumin 3.4g/dL (3.4-5.0) Microbiology 10/10/16 Urine Culture - Preliminary, Resulted Result Diagram: 10/12/1660410/12/16604 Catheters: Urethral 2 Way José Assessment & Plan Impression Status post day #1 right hip IM lul placement. Patient doing very well. Labs are currently stable at hemoglobin 9.5, hematocrit 29.3. Problems: Plan Patient will work with physical therapy while here in the hospital to move to bedside chair and out of bed assist. Patient will remain toe-touch weightbearing only for 6 weeks. Patient will continue Lovenox 40 mg subcutaneous daily for 21 days, then aspirin 325 mg by mouth twice a day for 3 more weeks for DVT prophylaxis. We will plan to change dressing tomorrow. Thank you to hospitalist team for managing this patient's other medical conditions. Anticipate that patient will require SNF discharge on day #3/Wednesday, discussed this plan with social worker delinquency prevention. Resuscitation Status: CPR: Attempt Resuscitation Gene Gonzalez PA-C Oct 12, 2016 12:07
[2016-10-12] MEDS ORDERED: Magnesium Sulf 2 Gm/50mL Water 2 GM in IV Premix 1 EACH IV ONE (13:00)
--- NOTE | 2016-10-12 15:05 | NUR ---
Mg/K Jhonatan Pt placed on Telemetry per Mg and K rider protocols. Post abx, first of two Mg++ riders hung. Pt picking at IV per daughter and leaking just prior to lunch. Infiltrated - dc'd intact. Pt with poor vein access. Call to IV therapy for restart. Per IV therapy, present to start IV as pt just getting ready to start eating and stated they would be back. At 1330, call to IV therapy to make sure she had not been forgotten. IV access established at ~1415. Rooks sleeve in place to deter picking and Mg++ infusing. IV supplements delayed. Continue to monitor.
--- NOTE | 2016-10-12 15:27 | NUR ---
Spoke with Jabier Brewster admission coordinator at [facility] and she actively reviewing patient and would like the PASRR faxed to [phone] and then when patient is discharged they will need a predictable readmit to therapy services due to toe touch weight bearing status. [facility] has requested this before and just needs to go into discharge instructions. Updated RECORDIST
--- NOTE | 2016-10-12 15:41 | NUR ---
Evaluation completed. Please go to "Notes" then click on "Assessments and Notes" (bottom left corner of screen). Then select appropriate discipline tab on top of screen.
--- NOTE | 2016-10-12 17:46 | PCM.PNMED ---
Subjective Date of Service Oct 12, 2016 Subjective Patient remains pleasantly demented and has some pain postoperatively in the area of the right hip. The patient's daughter Cynthia believes that the Tylenol is controlling this pain quite well. Exam Vital Signs Vital Sign - Last Date Time Temp Pulse Resp B/P Pulse Ox O2 Delivery O2 Flow Rate FiO2 10/12/16 13:04 36.3 70 16 122/71 95 Room Air 10/11/16 15:33 6 Intake and Output 10/11/16 10/11/16 10/12/16 Cumulative From/Thru 15:00 23:00 07:00 10/10/16 13:47 - 10/12/16 06:48 Intake Total 1780 ml 600 ml 1265 ml 4808 ml Output Total 100 ml 875 ml 1150 ml 3050 ml Balance 1680 ml -275 ml 115 ml 1758 ml Intake Oral 300 ml 620 ml IV Total 1780 ml 600 ml 965 ml 4188 ml Output Urine Total 775 ml 1150 ml 2850 ml Estimated Blood Loss 100 ml 100 ml 200 ml # Bowel Movements 0 0 0 Exam General: Patient is in minimal distress and is pleasantly demented. HEENT: Head is atraumatic and normocephalic. Eyes: Pupils are equally round and reactive to light and accommodation. Extraocular muscles are intact. Sclera are white, anicteric. Subconjunctival mucosa is pink. Ears and nose are unremarkable. Oropharynx: There is no mucosal lesions, there is no thrush, there is no pharyngitis. Neck: Is supple, there are no nodes, or masses or tenderness. Chest: Is clear to auscultation and percussion. There are no rales, rhonchi, wheezes or rubs. Heart: Rate, rhythm is regular. There is no murmur, rub or gallop. Abdomen: Good bowel sounds are present. Abdomen is soft, nontender, no organomegaly or masses were appreciated. Extremities: Are symmetrical and well perfused. There is no edema, there is no cellulitis, no rash. Neurologic: There are no focal neurological deficits. Cranial nerves II through XII are intact. There are no sensory or motor deficits. Psychiatric: Patients mood is calm and she shows no sign of agitation. Patient is pleasantly demented Genital: Deferred Rectal: Deferred Lab and Diagnostics Result Diagram: 260410/[id number] Microbiology Name: JAZ CASTRO Age/Sex: 86/F Attend Dr: Leona Bryson MD Acct: [id number] Unit: [id number] Status: ADM IN Location: [facility] 1016-1 Re10/10/16 Disch: Specimen: [id number] Collected: 10/10/16-1501 Status: RES Req#: [id number] Received: 10/10/16 Source: RANDOM Sp Desc : Subm Dr: Sebastián Lainez MD Ordered: URINE CULT Procedure Result Verified Site Microbiology MURTAZA CULT URINE Preliminary 10/11/16 No growth to date X-Rays, CTs and MRIs X-RAY CHEST ONE VIEW ([id number]) INDICATIONS: trauma TECHNIQUE: One view of the chest was acquired. COMPARISON: [facility], CR, XR CHEST 1VW (PORTABLE), 07/28/2016, 16 :12. [facility], CT, CHEST/ABD/PELVIS/ WO CON (PNL), 01/04/2015, 12: 33. [facility], CT, CHEST W/O CONTRAST, 01/24/2014, 9:33. [facility], CT, CHEST/ABD/PELVIS W/CON (PNL), 12/28/2013, 12:45. FINDINGS: Surgical changes and devices: None. Lungs and pleura: No pleural effusions or pneumothorax. Lungs are clear. Mediastinum: Mediastinal contours appear normal. Heart size is normal. Bones and chest wall: No suspicious bony lesions. Overlying soft tissues appear unremarkable. IMPRESSION: No definite trauma found. Dictated by: Cody Fuentes M.D Additional Diagnostics X-RAY PELVIS W/LAT HIP (RT) ([id number]) INDICATIONS: trauma TECHNIQUE: AP pelvis with lateral view(s) of the right hip(s). COMPARISON: None. FINDINGS: Bones: No dislocations. Pelvic ring appears intact. No suspicious bony lesions. There is an intertrochanteric right hip fracture, minimally displaced Soft tissues: The visualized bowel gas pattern is normal. No suspicious soft tissue calcifications. IMPRESSION: Right intertrochanteric hip fracture in near-anatomic alignment. Dictated by: Cody Fuentes M.D Assessment & Plan The patient is an 86-year-old white female with history of dementia who was at [employer] with her daughter the afternoon of admission. The patient attempted to sit down on the bench she misjudged and was only chcf on the bench. This caused her to fall onto her right hip on the ground. Her daughter tried to get her up with help but the patient had such severe pain that she was left on the ground and kept comfortable until the medics arrived. Her x-ray in the emergency department shows an intertrochanteric fracture of the right hip. 1 - Right Hip Fracture -Near anatomically aligned intertrochanteric fracture -Dr. Gamble was consulted and performed surgery with the description as follows : "Right hip mildly comminuted, 2 part, displaced base of femoral neck/ intertrochanteric fracture satisfactorily reduced and stabilized with [employer] short 130 9 mm x 180 mm diameter Affixus hip fracture intramedullary nail with 100 mm x 10.5 mm hip fracture nail lag screw and statically locked with a 34 mm x 5 mm cortical bone screw. Intraoperative fluoroscopic image intensification confirmed satisfactory reduction and that there was no intra- articular violation from our placed hardware." -Postoperatively patient will be placed on a diabetic diet as tolerated. -Starting hemoglobin is 10.7. 2 - Alzheimers Dementia -No currently worsening symptoms. -Patient is pleasantly confused 3 - Diabetes Mellitus II -Continue metformin and follow Accu-Cheks with appropriate insulin use while nothing by mouth. -We will begin a diabetic diet 4 - Hypothyroidism -Continue levothyroxine. -Check TSH 5 - Depression -Continue citalopram. 6 - Hyperlipidemia -Continue Lopid. 7 - Hypomagnesemia persists -Magnesium level was 1.5 on admission, so IV supplementation was given and recheck a level was normal. Today the magnesium was low again at 1.3. Aggressive IV replacement was again ordered -We will continue to monitor and replete as needed 8 . Hypophosphatemia -We will replace today and continue to monitor and replace as needed. 9 . Hypokalemia -We will replace today and continue to monitor and replace as needed. 8. Mild Normocytic Anemia -Checked iron level is normal and B12 level which is pending. Disposition: Patient will need physical therapy and occupational therapy and then likely transfer to long-term facility in a few days. Pain Evaluation: Adequate Pain Control VTE Prophylaxis: Sub-Q Enoxaparin VTE Mechanical Devices: Intermittant Pneumatic CD Resuscitation Status: CPR: Attempt Resuscitation Shin Goff MD Oct 12, 2016 17:46
[2016-10-12] MEDS ORDERED: 0.9% Sodium Chloride 250 ML ONE (18:58)
[2016-10-12] MEDS: Magnesium Chloride SR 64 mg ER24 Tablet PO SCH (19:04)
[2016-10-13] VITALS (7 sets, daily range): BP systolic 120–133; BP diastolic 64–74; PULSE 56–76; RESP 16–18; O2SAT 92–99
--- NOTE | 2016-10-13 04:41 | NUR ---
IV infusing Pt has juni over IV site and has not removed device this shift. She is AOx1 at start of shift, confusion/delusions through the noc shift and she frequently calls out and asks about people she sees in her room. Reoriented and calmed by staff, she has been cooperative and pleasant. Pain with leg movement, APAP given with success. José patent and draining, pt on TELE(SR 60s), cpox (occasionally below 80s, returns to above 90). Care continues
[2016-10-13 05:40] LABS: BASOPHILS % (AUTO) 0.1 % (0-3); EOSINOPHILS % (AUTO) 1.2 % (0-5); MONOCYTES % (AUTO) 12.5 % (4-12); Mean Corpuscular Hemoglobin 28.8 pg (27.0-35.0); Mean Corpuscular Volume 87.4 fL (81-100); NEUTROPHILS % (AUTO) 67.9 % (40-74); Platelet Count 208 bil/L (150-400)
[2016-10-13 06:03] LABS: Magnesium 2.6 mg/dL (1.6-2.6); Phosphorus 3.8 mg/dL (2.5-4.9)
--- NOTE | 2016-10-13 09:49 | PCM.PNORTH ---
Subjective Date of Service: Oct 13, 2016 Visit Information: Reason for Visit R Intertrochanteric Fx Surgery/Surgery Date RIGHT HIP NAILING 10/11/16 Post-Op Day # Date of Admission: Oct 10, 2016 at 16:24 Hospital Day # Subjective Status post day #2 right hip IM lul from intertrochanteric fracture. Patient states she is doing well, feeling much better today than yesterday. Pain is minimal, happy with her recovery. Postop General: No Complaints, No Shortness of Breath, No Chest Pain Objective Exam Objective Patient is alert and oriented 3. Answering questions appropriately. Sitting up in bed and not in any acute distress today. Dressing is clean dry and intact. Patient able to wiggle toes. Calf is soft and nontender, pulses intact, sensation is full. Hemoglobin 8.9, hematocrit 27.0. Still slightly trending downward. Vital Signs and I/O Vital Sign - Last Date Time Temp Pulse Resp B/P Pulse Ox O2 Delivery O2 Flow Rate FiO2 10/13/16 07:44 36.5 61 16 132/74 92 Room Air 10/11/16 15:33 6 Intake and Output 10/12/16 10/12/16 10/13/16 Cumulative From/Thru 15:00 23:00 07:00 10/10/16 13:47 - 10/13/16 05:42 Intake Total 1422 ml 589 ml 6819 ml Output Total 600 ml 1100 ml 4750 ml Balance 822 ml -511 ml 2069 ml Intake Oral 656 ml 275 ml 1551 ml IV Total 766 ml 314 ml 5268 ml Output Urine Total 600 ml 1100 ml 4550 ml Estimated Blood Loss 200 ml # Bowel Movements 0 0 0 Lab & Micro Results Laboratory Tests Test 10/13/16 05:20 White Blood Count 8.2th/mm3 (3.8-10.1) Red Blood Count 3.09mil/mm3 (3.90-5.20) Hemoglobin 8.9g/dL (12.0-15.6) Hematocrit 27.0% (35.0-46.0) Mean Corpuscular Volume 87.4fL (81-100) Mean Corpuscular Hemoglobin 28.8pg (27.0-35.0) Mean Corpuscular Hemoglobin Concent 33.0% (32.0-37.0) Red Cell Distribution Width 13.8% (12.3-15.4) Platelet Count 208bil/L (150-400) Neutrophils (%) (Auto) 67.9% (40-74) Lymphocytes (%) (Auto) 17.8% (14-46) Monocytes (%) (Auto) 12.5% (4-12) Eosinophils (%) (Auto) 1.2% (0-5) Basophils (%) (Auto) 0.1% (0-3) Sodium Level 133mEq/L (134-144) Potassium Level 3.5mEq/L (3.5-5.2) Chloride Level 98mEq/L (97-108) Carbon Dioxide Level 24mmol/L (18-29) Blood Urea Nitrogen 9mg/dL (8-27) Creatinine 0.96mg/dL (0.57-1.00) Estimat Glomerular Filtration Rate 79mL/min (>59) Glucose Level 118mg/dL (60-99) Calcium Level 7.9mg/dL (8.5-10.1) Phosphorus Level 3.8mg/dL (2.5-4.9) Magnesium Level 2.6mg/dL (1.6-2.6) Total Bilirubin 0.2mg/dL (0.0-1.2) Aspartate Amino Transf (AST/SGOT) 15U/L (0-50) Alanine Aminotransferase (ALT/SGPT) 8U/L (0-32) Alkaline Phosphatase 37U/L (25-165) Total Protein 5.0g/dL (6.4-8.4) Albumin 3.2g/dL (3.4-5.0) Microbiology 10/10/16 Urine Culture - Final, Complete Mixed Urogenital Aurelia Result Diagram: 10/13/1651910/13/16519 Catheters: Urethral 2 Way José Assessment & Plan Impression Status post day #2 right IM lul placement for right hip intertrochanteric fracture. Patient doing well. Problems: Plan Patient will work with physical therapy while here in the hospital to move to bedside chair and out of bed assist. Patient will remain toe-touch weightbearing only for 6 weeks. Patient will continue Lovenox 40 mg subcutaneous daily for 14 days, then aspirin 325 mg by mouth twice a day for 4 more weeks for DVT prophylaxis. Dressing changed today. Incision was clean, no discharge, no erythema. We will discontinue the José today. We will continue to watch hemoglobin and hematocrit through tomorrow to make sure this stabilizes. Thank you to hospitalist team for managing this patient's other medical conditions. Anticipate that patient will require SNF discharge tomorrow day #3/Wednesday as long as patient is otherwise medically stable, discussed this plan with social media marketer. VTE Prophylaxis: Sub-Q Enoxaparin Resuscitation Status: CPR: Attempt Resuscitation Gene Gonzalez PA-C Oct 13, 2016 09:49
[2016-10-13] MEDS: Pantoprazole 20 mg ER24 Tablet PO SCH (10:35)
[2016-10-13] MEDS: Potassium Chloride 20 mEq SR Tablet PO SCH (10:36)
[2016-10-13] MEDS: cefTRIAXone Inj 1,000 MG in Dextrose 5% Minibag Plus 50 ML IV SCH (11:12)
--- NOTE | 2016-10-13 12:02 | NUR ---
Called and left message on admissions phone at [facility] [phone], let them know I was following up on phone call from yesterday. I needed to know if PASRR was received and if they can formally accept patient. Also let them know patient would likely be ready in 1-2 days for discharge. Updated CORPORATE AFFAIRS MANAGER Addendum: 10/13/16 at 1307 by ANGELA MINAYA Spoke with Amanda Carrera in admissions at [facility] and they will be out first thing in the morning to do a bedside assessment. Updated CORPORATE AFFAIRS MANAGER Addendum: 10/13/16 at 1408 by ANGELA MINAYA Mikayla at [facility] is unable to take patient due to dementia and no appropriate bed. Updated CORPORATE AFFAIRS MANAGER Addendum: 10/13/16 at 1546 by ANGELA MINAYA CM Left message at [facility] in admissions.
[2016-10-13] MEDS: D5 0.45% NaCl + KCl 20 mEq/L 1,000 ML IV SCH ×2 (12:22→15:30)
--- NOTE | 2016-10-13 14:53 | NUR ---
Pain P: patient c/o 8/10 pain in right hip with ambulation I: Repositioned onto left side with pillow and gave pain meds E:pt reports 5/10 pain after reassessment
--- NOTE | 2016-10-13 15:59 | NUR ---
Social Work- Readiness for Discharge Data: EMR reviewed. Pt is on day 3 of hospitalization for R intertrochanteric fracture per H&P. Pt is POD 2. HAROON spoke with pt's DPOA and daughter Cynthia Guajardo at bedside regarding discharge plan. SW explained that [facility] is still reviewing for acceptance. SW informed daughter about potential discharge to [facility]. UR specialist to call alternative facilities that have been faxed to determine acceptance. PT continues to recommend SNF via BLS. SW discussed BLS transport with daughter, stated we cannot guarantee that insurance will cover BLS transport. Daughter requested SW receive quote for private pay cabulance from [facility]. [facility] quoted transport at $125. SW left message regarding transportation information and bedside assessment from [facility] for daughter Cynthia. SW to follow up tomorrow as well. Pt to discharge to [facility] pending bedside assessment 10/14/16. SW continues to follow. Assessment: Pt who would benefit from SNF. Plan: PT continues to recommend SNF. Pt to discharge to [facility] pending bedside assessment 10/14/16. SW continues to follow. RICKI Jordan
[2016-10-13] MEDS: Magnesium Chloride SR 64 mg ER24 Tablet PO SCH (17:54)
--- NOTE | 2016-10-13 18:39 | NUR ---
Activity Pt was able to stand at the bedside with PT this a.m. COLT Gonzalez asked that pt's José catheter be removed; hospitalist also approved this. José was removed at 0955 hrs. Pt was able to transfer to the [facility] with 2-person assist. Pt tolerated this activity well. Her pain is controlled with 975 mg PO acetaminophen Q 6 hrs.
--- NOTE | 2016-10-13 22:14 | PCM.PNMED ---
Subjective Date of Service Oct 13, 2016 Subjective Patient is in good spirits however she continues to complain of pain in her right hip. The Tylenol is helping her pain. Exam Vital Signs Vital Sign - Last Date Time Temp Pulse Resp B/P Pulse Ox O2 Delivery O2 Flow Rate FiO2 10/13/16 20:30 36.5 62 18 133/69 95 Room Air 10/11/16 15:33 6 Intake and Output 10/12/16 10/12/16 10/13/16 Cumulative From/Thru 15:00 23:00 07:00 10/10/16 13:47 - 10/13/16 05:42 Intake Total 1422 ml 589 ml 6819 ml Output Total 600 ml 1100 ml 4750 ml Balance 822 ml -511 ml 2069 ml Intake Oral 656 ml 275 ml 1551 ml IV Total 766 ml 314 ml 5268 ml Output Urine Total 600 ml 1100 ml 4550 ml Estimated Blood Loss 200 ml # Bowel Movements 0 0 0 Exam General: Patient is in minimal distress and remains pleasantly demented. HEENT: Head is atraumatic and normocephalic. Eyes: Pupils are equally round and reactive to light and accommodation. Extraocular muscles are intact. Sclera are white, anicteric. Subconjunctival mucosa is pink. Ears and nose are unremarkable. Oropharynx: There is no mucosal lesions, there is no thrush, there is no pharyngitis. Neck: Is supple, there are no nodes, or masses or tenderness. Chest: Is clear to auscultation and percussion. There are no rales, rhonchi, wheezes or rubs. Heart: Rate, rhythm is regular. There is no murmur, rub or gallop. Abdomen: Good bowel sounds are present. Abdomen is soft, nontender, no organomegaly or masses were appreciated. Extremities: Are symmetrical and well perfused. There is no edema, there is no cellulitis, no rash. Neurologic: There are no focal neurological deficits. Cranial nerves II through XII are intact. There are no sensory or motor deficits. Psychiatric: Patients mood is calm and she shows no sign of agitation. Patient remains pleasantly demented. Genital: Deferred Rectal: Deferred Lab and Diagnostics Result Diagram: 10/13/1651910/13/16519 Microbiology Name: JAZ CASTRO Age/Sex: 86/F Attend Dr: Leoan Bryson MD Acct: [id number] Unit: [id number] Status: ADM IN Location: [facility] 1016-1 Re10/10/16 Disch: Specimen: [id number] Collected: 10/10/16 Status: RES Req#: [id number] Received: 10/10/16 Source: [facility]OM Sp Desc : Subm Dr: Sebastián Lainez MD Ordered: URINE CULT Procedure Result Verified Site Microbiology [facility] CULT URINE Preliminary 10/11/16 No growth to date X-Rays, CTs and MRIs X-RAY CHEST ONE VIEW ([id number]) INDICATIONS: trauma TECHNIQUE: One view of the chest was acquired. COMPARISON: [facility], CR, XR CHEST 1VW (PORTABLE), 07/28/2016, 16 :12. [facility], CT, CHEST/ABD/PELVIS/ WO CON (PNL), 01/04/2015, 12: 33. [facility], CT, CHEST W/O CONTRAST, 01/24/2014, 9:33. [facility], CT, CHEST/ABD/PELVIS W/CON (PNL), 12/28/2013, 12:45. FINDINGS: Surgical changes and devices: None. Lungs and pleura: No pleural effusions or pneumothorax. Lungs are clear. Mediastinum: Mediastinal contours appear normal. Heart size is normal. Bones and chest wall: No suspicious bony lesions. Overlying soft tissues appear unremarkable. IMPRESSION: No definite trauma found. Dictated by: Cody Fuentes M.D Additional Diagnostics X-RAY PELVIS W/LAT HIP (RT) ([id number]) INDICATIONS: trauma TECHNIQUE: AP pelvis with lateral view(s) of the right hip(s). COMPARISON: None. FINDINGS: Bones: No dislocations. Pelvic ring appears intact. No suspicious bony lesions. There is an intertrochanteric right hip fracture, minimally displaced Soft tissues: The visualized bowel gas pattern is normal. No suspicious soft tissue calcifications. IMPRESSION: Right intertrochanteric hip fracture in near-anatomic alignment. Dictated by: Cody Fuentes M.D Assessment & Plan The patient is an 86-year-old white female with history of dementia who was at [facility] with her daughter the afternoon of admission. The patient attempted to sit down on the bench she misjudged and was only correction on the bench. This caused her to fall onto her right hip on the ground. Her daughter tried to get her up with help but the patient had such severe pain that she was left on the ground and kept comfortable until the medics arrived. Her x-ray in the emergency department shows an intertrochanteric fracture of the right hip. 1 - Right Hip Fracture -Near anatomically aligned intertrochanteric fracture -Dr. Gamble was consulted and performed surgery with the description as follows : "Right hip mildly comminuted, 2 part, displaced base of femoral neck/ intertrochanteric fracture satisfactorily reduced and stabilized with [employer] short 130 9 mm x 180 mm diameter Affixus hip fracture intramedullary nail with 100 mm x 10.5 mm hip fracture nail lag screw and statically locked with a 34 mm x 5 mm cortical bone screw. Intraoperative fluoroscopic image intensification confirmed satisfactory reduction and that there was no intra- articular violation from our placed hardware." -Postoperatively patient will be placed on a diabetic diet as tolerated. -Starting hemoglobin is 10.7. -Continue physical therapy 2 - Alzheimers Dementia -No currently worsening symptoms. -Patient is pleasantly confused 3 - Diabetes Mellitus II -Continue metformin and follow Accu-Cheks with appropriate insulin use while nothing by mouth. -We will begin a diabetic diet 4 - Hypothyroidism -Continue levothyroxine. -Check TSH 5 - Depression -Continue citalopram. 6 - Hyperlipidemia -Continue Lopid. 7 - Hypomagnesemia persists -Magnesium level was 1.5 on admission, so IV supplementation was given and recheck a level was normal. Today the magnesium was low again at 1.3. Aggressive IV replacement was again ordered -We will continue to monitor and replete as needed 8 . Hypophosphatemia -We will replace today and continue to monitor and replace as needed. 9 . Hypokalemia -We will replace today and continue to monitor and replace as needed. 8. Mild Normocytic Anemia -Checked iron level is normal and B12 level which is pending. Disposition: Patient will need physical therapy and occupational therapy and then likely [facility] in a few days. Pain Evaluation: Adequate Pain Control VTE Prophylaxis: Sub-Q Enoxaparin VTE Mechanical Devices: Intermittant Pneumatic CD Resuscitation Status: CPR: Attempt Resuscitation Shin Goff MD Oct 13, 2016 22:14
[2016-10-14 00:30] VITALS: BP 132/71; PULSE 66; RESP 20; O2SAT 96
[2016-10-14] MEDS: D5 0.45% NaCl + KCl 20 mEq/L 1,000 ML IV SCH (01:27)
[2016-10-14 04:53] VITALS: BP 139/79; PULSE 59; RESP 18; O2SAT 98
--- NOTE | 2016-10-14 05:59 | NUR ---
IV: pt's iv infiltrated left hand and wrist, noticed while getting patient up to the bedside commode. IV dc'd, arm elevated, and warm pack applied.
[2016-10-14 06:53] LABS: Magnesium 1.9 mg/dL (1.6-2.6)
[2016-10-14 06:54] LABS: BASOPHILS % (AUTO) 0.3 % (0-3); EOSINOPHILS % (AUTO) 2.2 % (0-5); MONOCYTES % (AUTO) 11.1 % (4-12); Mean Corpuscular Hemoglobin 29.2 pg (27.0-35.0); Mean Corpuscular Volume 89.1 fL (81-100); Platelet Count 266 bil/L (150-400)
[2016-10-14 07:39] VITALS: BP 128/73; PULSE 63; RESP 14; O2SAT 97
[2016-10-14] MEDS: cefTRIAXone Inj 1,000 MG in Dextrose 5% Minibag Plus 50 ML IV SCH (08:10)
[2016-10-14] MEDS: Pantoprazole 20 mg ER24 Tablet PO SCH (08:12)
[2016-10-14] MEDS: Potassium Chloride 20 mEq SR Tablet PO SCH (08:13)
--- NOTE | 2016-10-14 08:29 | PCM.PNORTH ---
Subjective Date of Service: Oct 14, 2016 Visit Information: Reason for Visit R Intertrochanteric Fx Surgery/Surgery Date RIGHT HIP NAILING 10/11/16 Post-Op Day # Date of Admission: Oct 10, 2016 at 16:24 Hospital Day # Subjective Status post a day #3 right hip IM nail. Patient doing very well, pain is well controlled. She is ready to go to SNF. Postop General: No Complaints, No Shortness of Breath, No Chest Pain Objective Exam Objective Patient is alert and oriented 3. Answering questions appropriately. Sitting up in bed and not in any acute distress today. Dressing is clean dry and intact. Patient able to wiggle toes. Calf is soft and non-tender, pulses intact, sensation is full. Vital Signs and I/O Vital Sign - Last Date Time Temp Pulse Resp B/P Pulse Ox O2 Delivery O2 Flow Rate FiO2 10/14/16 07:39 36.7 63 14 128/73 97 Room Air 10/11/16 15:33 6 Intake and Output 10/13/16 10/13/16 10/14/16 Cumulative From/Thru 15:00 23:00 07:00 10/10/16 13:47 - 10/14/16 06:52 Intake Total 1767 ml 1091 ml 9677 ml Output Total 675 ml 1000 ml 6425 ml Balance 1092 ml 91 ml 3252 ml Intake Oral 1040 ml 220 ml 2811 ml IV Total 727 ml 871 ml 6866 ml Output Urine Total 675 ml 1000 ml 6225 ml Estimated Blood Loss 200 ml # Voids 3 3 # Bowel Movements 2 2 4 Lab & Micro Results Laboratory Tests Test 10/14/16 05:55 White Blood Count 7.4th/mm3 (3.8-10.1) Red Blood Count 3.49mil/mm3 (3.90-5.20) Hemoglobin 10.2g/dL (12.0-15.6) Hematocrit 31.1% (35.0-46.0) Mean Corpuscular Volume 89.1fL (81-100) Mean Corpuscular Hemoglobin 29.2pg (27.0-35.0) Mean Corpuscular Hemoglobin Concent 32.8% (32.0-37.0) Red Cell Distribution Width 14.5% (12.3-15.4) Platelet Count 266bil/L (150-400) Neutrophils (%) (Auto) 66.0% (40-74) Lymphocytes (%) (Auto) 20.1% (14-46) Monocytes (%) (Auto) 11.1% (4-12) Eosinophils (%) (Auto) 2.2% (0-5) Basophils (%) (Auto) 0.3% (0-3) Sodium Level 134mEq/L (134-144) Potassium Level 4.4mEq/L (3.5-5.2) Chloride Level 98mEq/L (97-108) Carbon Dioxide Level 22mmol/L (18-29) Blood Urea Nitrogen 8mg/dL (8-27) Creatinine 0.86mg/dL (0.57-1.00) Estimat Glomerular Filtration Rate 89mL/min (>59) Glucose Level 122mg/dL (60-99) Calcium Level 8.1mg/dL (8.5-10.1) Magnesium Level 1.9mg/dL (1.6-2.6) Total Bilirubin 0.3mg/dL (0.0-1.2) Aspartate Amino Transf (AST/SGOT) 15U/L (0-50) Alanine Aminotransferase (ALT/SGPT) 8U/L (0-32) Alkaline Phosphatase 48U/L (25-165) Total Protein 6.0g/dL (6.4-8.4) Albumin 3.6g/dL (3.4-5.0) Microbiology 10/10/16 Urine Culture - Final, Complete Mixed Urogenital Aurelia Result Diagram: 10/14/16 0555 10/14/16 0555 Catheters: Urethral 2 Way José Assessment & Plan Impression Status post day #3 right hip IM nail. Patient doing very well. Patient is ready for transfer whenever medically cleared. Problems: Plan Patient will remain toe-touch weightbearing only for 6 weeks. Patient will continue Lovenox 40 mg subcutaneous daily for 14 days, then aspirin 325 mg by mouth twice a day for 4 more weeks for DVT prophylaxis. Hemoglobin and hematocrit have stabilized, does not need any transfusion, doing well. Patient will have dressing changes as needed if saturating. She should receive a dressing change before leaving the hospital today. Prefer that patient keep the incision site clean dry and intact while in the snf facility. Change as needed if saturating or becomes wet. Patient may shower after today, try to keep the dressing region dry or change if saturated. Thank you to hospitalist team for managing this patient's other medical conditions. Patient is cleared for discharge from an orthopedic standpoint, as soon as medically stable she may be transferred, most likely today. VTE Prophylaxis: Sub-Q Enoxaparin Resuscitation Status: CPR: Attempt Resuscitation Gene Gonzalez PA-C Oct 14, 2016 08:29
--- NOTE | 2016-10-14 09:04 | NUR ---
Called and left message on [facility] admissions phone [phone] and asked about onsite that happened yesterday afternoon. Asked her to call me back and let me know if they would be able to accept patient today. Updated HEALTH SUPPORT SPECIALIST Addendum: 10/14/16 at 1212 by ANGELA MINAYA CM Spoke with Amanda and they are on board for patient to discharge today and will follow. Updated HEALTH SUPPORT SPECIALIST and working on transportation piece. Updated HEALTH SUPPORT SPECIALIST
[2016-10-14 10:07] VITALS: PULSE 82
[2016-10-14] MEDS ORDERED: Acetaminophen PO (11:54)
[2016-10-14] MEDS ORDERED: PANT20TA2 PO (11:54)
[2016-10-14] MEDS ORDERED: SENN-133 PO (11:54)
[2016-10-14] MEDS ORDERED: POLY17PO6 PO (11:54)
[2016-10-14] MEDS ORDERED: ENOX40DI8 SUBQ (11:54)
--- NOTE | 2016-10-14 11:55 | PCM.DIMED ---
Discharge Instructions Date of Service Oct 14, 2016 Dates of Hospitalization Oct 10, 2016 at 16:24 Discharge Diagnosis Discharge Diagnosis Right Hip Fracture Diet Heart Healthy, Diabetic Activity Other (Patient is to be non weight bearing to the right lower extremity for six weeks. Toe touching only right lower extremity.) Call your provider Fever or Chills, Shortness of breath, Bleeding, Chest pain, Vomitting, Excessive diarrhea, Weakness (unilateral), Other Patient Instructions Follow-up Provider: Weston Moreira PA-C Follow-up with PCP in: 1 week Provider: Rinku Gamble MD Follow-up in: 2 weeks Shin Goff MD Oct 14, 2016 11:55
[2016-10-14 12:28] VITALS: BP 116/65; PULSE 69; RESP 20; O2SAT 98
--- NOTE | 2016-10-14 13:27 | PCM.PNORTH ---
Subjective Date of Service: Oct 14, 2016 Visit Information: Reason for Visit R Intertrochanteric Fx Surgery/Surgery Date RIGHT HIP NAILING 10/11/16 Post-Op Day # Date of Admission: Oct 10, 2016 at 16:24 Hospital Day # Subjective Patient is mobilizing satisfactorily and reports no new right hip problems. Postop General: No Complaints, No Shortness of Breath, No Chest Pain Objective Exam Vital Signs and I/O Vital Sign - Last Date Time Temp Pulse Resp B/P Pulse Ox O2 Delivery O2 Flow Rate FiO2 10/14/16 12:28 36.7 69 20 116/65 98 Room Air 10/11/16 15:33 6 Intake and Output 10/13/16 10/13/16 10/14/16 Cumulative From/Thru 15:00 23:00 07:00 10/10/16 13:47 - 10/14/16 06:52 Intake Total 1767 ml 1091 ml 9677 ml Output Total 675 ml 1000 ml 6425 ml Balance 1092 ml 91 ml 3252 ml Intake Oral 1040 ml 220 ml 2811 ml IV Total 727 ml 871 ml 6866 ml Output Urine Total 675 ml 1000 ml 6225 ml Estimated Blood Loss 200 ml # Voids 3 3 # Bowel Movements 2 2 4 Lab & Micro Results Laboratory Tests Test 10/14/16 05:55 White Blood Count 7.4th/mm3 (3.8-10.1) Red Blood Count 3.49mil/mm3 (3.90-5.20) Hemoglobin 10.2g/dL (12.0-15.6) Hematocrit 31.1% (35.0-46.0) Mean Corpuscular Volume 89.1fL (81-100) Mean Corpuscular Hemoglobin 29.2pg (27.0-35.0) Mean Corpuscular Hemoglobin Concent 32.8% (32.0-37.0) Red Cell Distribution Width 14.5% (12.3-15.4) Platelet Count 266bil/L (150-400) Neutrophils (%) (Auto) 66.0% (40-74) Lymphocytes (%) (Auto) 20.1% (14-46) Monocytes (%) (Auto) 11.1% (4-12) Eosinophils (%) (Auto) 2.2% (0-5) Basophils (%) (Auto) 0.3% (0-3) Sodium Level 134mEq/L (134-144) Potassium Level 4.4mEq/L (3.5-5.2) Chloride Level 98mEq/L (97-108) Carbon Dioxide Level 22mmol/L (18-29) Blood Urea Nitrogen 8mg/dL (8-27) Creatinine 0.86mg/dL (0.57-1.00) Estimat Glomerular Filtration Rate 89mL/min (>59) Glucose Level 122mg/dL (60-99) Calcium Level 8.1mg/dL (8.5-10.1) Magnesium Level 1.9mg/dL (1.6-2.6) Total Bilirubin 0.3mg/dL (0.0-1.2) Aspartate Amino Transf (AST/SGOT) 15U/L (0-50) Alanine Aminotransferase (ALT/SGPT) 8U/L (0-32) Alkaline Phosphatase 48U/L (25-165) Total Protein 6.0g/dL (6.4-8.4) Albumin 3.6g/dL (3.4-5.0) Microbiology 10/10/16 Urine Culture - Final, Complete Mixed Urogenital Aurelia Result Diagram: 10/14/16 0555 10/14/16 0555 Extremities: Other (right hip dressing intact. No gross formative the right lower extremity.) Postop Sensory Motor: Distal Motor Intact, Distal Sensation Intact Catheters: Urethral 2 Way José Assessment & Plan Impression Postop day #3 right hip intertrochanteric fracture, surgically stabilizing Problems: Plan Patient may discharge to senior care facility from a surgical standpoint. Medical condition has been stabilized. The patient should remain touchdown weightbearing through her right lower extremity for the first 6 weeks postop. Skin una can be removed on or after postoperative day #12. Patient should be seen in the outpatient orthopedic clinic on 2 weeks postop. VTE Prophylaxis: Sub-Q Enoxaparin Resuscitation Status: CPR: Attempt Resuscitation Rinku Gamble MD Oct 14, 2016 13:27
--- NOTE | 2016-10-14 14:03 | NUR ---
Social Work- Discharge Data: EMR reviewed. Pt is on day 4 of hospitalization for right intertrochanteric fracture per H&P. Pt is medically stable to discharge today. PT continues to recommend SNF placement. UR Specialist informed SW that pt does not meet criteria for S transport. HAROON spoke with daughter Cynthia Guajardo at bedside regarding discharge plan. SW informed Cynthia that since she is not eligible for BLS, private pay cabulance transportation is required. HAROON provided [facility] tsang quote of $125 to daughter Cynthia, daughter agreeable to this. HAROON called admissions at [facility] to inform them of pt's discharge, [facility] agreeable to accepting patient today. SW arranged transportation to [facility] at 2 pm via private pay cabulance [facility]. Daughter called [facility] and provided cabulance payment. UR specialist created packet and faxed orders. HAROON updated pt and daughter Cynthia at bedside. RN, KEHINDE, pt/family and [facility] all updated and agreeable to plan. Assessment: Pt who would benefit from SNF. Plan: Pt to discharge to [facility] via private pay cabulance at 1400. RN, UC, pt/family and [facility] all updated and agreeable to plan. RICKI Jordan
--- NOTE | 2016-10-14 17:12 | NUR ---
Discharge Patient discharged to [facility]. Pt transported by cabulance with daughter present at discharge. Report called and given to JAVED Rogers.
--- NOTE | 2016-10-14 23:08 | PCM.DC.MED ---
Discharge Summary Date of Service Oct 14, 2016 Dates of Hospitalization Date of Hospital Admission Oct 10, 2016 at 16:24 Date of Discharge: Oct 14, 2016 Providers: Admitting Physician: Leona Bryson MD Primary Care Physician: Weston Moreira PA-C Attending Physician: Leona Bryson MD Diagnosis at Time of Discharge Diagnosis at Time of Discharge Right Hip Fracture Procedures XRay, CTs & MRIs X-RAY CHEST ONE VIEW ([id number]) INDICATIONS: trauma TECHNIQUE: One view of the chest was acquired. COMPARISON: [facility], CR, XR CHEST 1VW (PORTABLE), 07/28/2016, 16 :12. [facility], CT, CHEST/ABD/PELVIS/ WO CON (PNL), 01/04/2015, 12: 33. [facility], CT, CHEST W/O CONTRAST, 01/24/2014, 9:33. [facility], CT, CHEST/ABD/PELVIS W/CON (PNL), 12/28/2013, 12:45. FINDINGS: Surgical changes and devices: None. Lungs and pleura: No pleural effusions or pneumothorax. Lungs are clear. Mediastinum: Mediastinal contours appear normal. Heart size is normal. Bones and chest wall: No suspicious bony lesions. Overlying soft tissues appear unremarkable. IMPRESSION: No definite trauma found. Dictated by: Cody Fuentes M.D Other Diagnostics X-RAY PELVIS W/LAT HIP (RT) ([id number]) INDICATIONS: trauma TECHNIQUE: AP pelvis with lateral view(s) of the right hip(s). COMPARISON: None. FINDINGS: Bones: No dislocations. Pelvic ring appears intact. No suspicious bony lesions. There is an intertrochanteric right hip fracture, minimally displaced Soft tissues: The visualized bowel gas pattern is normal. No suspicious soft tissue calcifications. IMPRESSION: Right intertrochanteric hip fracture in near-anatomic alignment. Dictated by: Cody Fuentes M.D Brief History The patient is an 86-year-old pleasant lady demented white female who was having a good day, going out with her daughter to get coffee at [employer] on their way to shopping today. She had no particular symptoms other than her chronic memory loss/dementia. She misjudged the seating arrangement and fell onto the floor. She was brought to [facility] emergency room where she was found to have a right hip fracture She has been seen by Dr. Gamble from the orthopedic service and will likely undergo ORIF or hip replacement in the morning. Her medical history includes diabetes mellitus type II, hypothyroidism, depression, dementia, hypomagnesemia, hyper lipidemia. She has been stable on her current medications for some time. She lives in the [facility] in [place]. Her daughter visits her regularly and was taking her out for a looked forward to shopping trip today. The patient was admitted to the hospital service for further evaluation and treatment. Hospital Course The patient is an 86-year-old white female with history of dementia who was at [employer] with her daughter the afternoon of admission. The patient attempted to sit down on the bench she misjudged and was only senior living on the bench. This caused her to fall onto her right hip on the ground. Her daughter tried to get her up with help but the patient had such severe pain that she was left on the ground and kept comfortable until the medics arrived. Her x-ray in the emergency department shows an intertrochanteric fracture of the right hip. 1 - Right Hip Fracture -Near anatomically aligned intertrochanteric fracture -Dr. Gamble was consulted and performed surgery with the description as follows : "Right hip mildly comminuted, 2 part, displaced base of femoral neck/ intertrochanteric fracture satisfactorily reduced and stabilized with [employer] short 130 9 mm x 180 mm diameter Affixus hip fracture intramedullary nail with 100 mm x 10.5 mm hip fracture nail lag screw and statically locked with a 34 mm x 5 mm cortical bone screw. Intraoperative fluoroscopic image intensification confirmed satisfactory reduction and that there was no intra- articular violation from our placed hardware." -Postoperatively patient will be placed on a diabetic diet as tolerated. -Starting hemoglobin is 10.7. -Continue physical therapy 2 - Alzheimers Dementia -No currently worsening symptoms. -Patient is pleasantly confused 3 - Diabetes Mellitus II -Continue metformin and follow Accu-Cheks with appropriate insulin use while nothing by mouth. -We will begin a diabetic diet 4 - Hypothyroidism -Continue levothyroxine. -Check TSH 5 - Depression -Continue citalopram. 6 - Hyperlipidemia -Continue Lopid. 7 - Hypomagnesemia persists -Magnesium level was 1.5 on admission, so IV supplementation was given and recheck a level was normal. Today the magnesium was low again at 1.3. Aggressive IV replacement was again ordered -We continued to monitor and replete as needed. 8 . Hypophosphatemia -We continued to monitor and replace as needed. 9 . Hypokalemia -We continued to monitor and replace as needed. 8. Mild Normocytic Anemia -Checked iron level is normal and B12 level which is pending. Disposition: Patient will be discharged to [facility] in [place] today. Exam Vital Signs (Last) Date Time Temp Pulse Resp B/P Pulse Ox O2 Delivery O2 Flow Rate FiO2 10/14/16 12:28 36.7 69 20 116/65 98 Room Air 10/11/16 15:33 6 Exam General: Patient is in minimal distress and remains pleasantly demented. HEENT: Head is atraumatic and normocephalic. Eyes: Pupils are equally round and reactive to light and accommodation. Extraocular muscles are intact. Sclera are white, anicteric. Subconjunctival mucosa is pink. Ears and nose are unremarkable. Oropharynx: There is no mucosal lesions, there is no thrush, there is no pharyngitis. Neck: Is supple, there are no nodes, or masses or tenderness. Chest: Is clear to auscultation and percussion. There are no rales, rhonchi, wheezes or rubs. Heart: Rate, rhythm is regular. There is no murmur, rub or gallop. Abdomen: Good bowel sounds are present. Abdomen is soft, nontender, no organomegaly or masses were appreciated. Extremities: Are symmetrical and well perfused. There is no edema, there is no cellulitis, no rash. Neurologic: There are no focal neurological deficits. Cranial nerves II through XII are intact. There are no sensory or motor deficits. Psychiatric: Patients mood is calm and she shows no sign of agitation. Patient remains pleasantly demented. Genital: Deferred Rectal: Deferred Test 10/10/16 15:02 10/10/16 15:15 10/10/16 15:45 10/11/16 06:00 Urine Color Yellow (YELLOW) Urine Appearance Clear (CLEAR,HAZY) Urine pH 5.5 (5.0-8.0) Urine Specific [place] 1.025 (1.003-1.035) Urine Protein Tracemg/dL (NEG,TRACE) Urine Glucose (UA) Negativemg/dL (NEGATIVE) Urine Ketones 15mg/dL (NEGATIVE) Urine Occult Blood Trace (NEGATIVE) Urine Nitrite Positive (NEGATIVE) Urine Bilirubin Negative (NEGATIVE) Urine Urobilinogen Normalmg/dL (NORMAL) Urine Leukocyte Esterase Negative (NEGATIVE) Urine RBC 0-2/hpf (0-2) Urine WBC 0-5/hpf (0-5) Urine Epithelial Cells Few/hpf (NONE-MOD) Urine Crystals None seen (NONE SEEN) Urine Bacteria Many/hpf (NONE-FEW) Urine Hyaline Casts None/lpf (NONE) Urine Granular Casts None seen (NONE SEEN) Urine Waxy Casts None seen (NONE SEEN) Urine Red Blood Cell Casts None seen (NONE SEEN) Urine White Blood Cell Casts None seen (NONE SEEN) Urine Mucus None seen (None Seen) Urine Trichomonas None seen (NONE SEEN) Urine Yeast None (NONE SEEN) Urinalysis Comment None Urine Culture Reflexed Indicated Hold Urine Received (Received) Iron Level 86ug/dL (35-150) Vitamin B12 Level 365pg/mL (211-946) Test 10/11/16 09:14 10/13/16 05:20 10/14/16 05:55 Prothrombin Time 12.5sec (8.1-12.5) Prothromb Time International Ratio 1.16ratio Phosphorus Level 3.8mg/dL (2.5-4.9) White Blood Count 7.4th/mm3 (3.8-10.1) Red Blood Count 3.49mil/mm3 (3.90-5.20) Hemoglobin 10.2g/dL (12.0-15.6) Hematocrit 31.1% (35.0-46.0) Mean Corpuscular Volume 89.1fL (81-100) Mean Corpuscular Hemoglobin 29.2pg (27.0-35.0) Mean Corpuscular Hemoglobin Concent 32.8% (32.0-37.0) Red Cell Distribution Width 14.5% (12.3-15.4) Platelet Count 266bil/L (150-400) Neutrophils (%) (Auto) 66.0% (40-74) Lymphocytes (%) (Auto) 20.1% (14-46) Monocytes (%) (Auto) 11.1% (4-12) Eosinophils (%) (Auto) 2.2% (0-5) Basophils (%) (Auto) 0.3% (0-3) Sodium Level 134mEq/L (134-144) Potassium Level 4.4mEq/L (3.5-5.2) Chloride Level 98mEq/L (97-108) Carbon Dioxide Level 22mmol/L (18-29) Blood Urea Nitrogen 8mg/dL (8-27) Creatinine 0.86mg/dL (0.57-1.00) Estimat Glomerular Filtration Rate 89mL/min (>59) Glucose Level 122mg/dL (60-99) Calcium Level 8.1mg/dL (8.5-10.1) Magnesium Level 1.9mg/dL (1.6-2.6) Total Bilirubin 0.3mg/dL (0.0-1.2) Aspartate Amino Transf (AST/SGOT) 15U/L (0-50) Alanine Aminotransferase (ALT/SGPT) 8U/L (0-32) Alkaline Phosphatase 48U/L (25-165) Total Protein 6.0g/dL (6.4-8.4) Albumin 3.6g/dL (3.4-5.0) Microbiology Results Name: JAZ CASTRO Age/Sex: 86/F Attend Dr: Leona Bryson MD Acct: [id number] Unit: [id number] Status: ADM IN Location: [facility] 1016-1 Re10/10/16 Disch: Specimen: [id number] Collected: 10/10/16 Status: RES Req#: [id number] Received: 10/10/16 Source: RANDOM Sp Desc : Subm Dr: Sebastián Lainez MD Ordered: URINE CULT Procedure Result Verified Site Microbiology [facility] CULT URINE Preliminary 10/11/16 No growth to date Discharge Medications Discharge Medications Aspirin (Aspirin) 81 Mg Tablet. 81 MG PO DAILY (Reported) Enoxaparin Sodium (Enoxaparin Sodium) 40 Mg/0.4 Ml Syringe 40 MG SUBQ DAILY Prescribed by: BRODERICK GOFF MD Escitalopram Oxalate (Lexapro) 5 Mg Tablet 10 MG PO HS (Reported) Gemfibrozil (Gemfibrozil) 600 Mg Tablet 600 MG PO BID (Reported) Levothyroxine (Levothyroxine) 50 Mcg Tablet 50 MCG PO DAILY (Reported) Magnesium Chloride (Slow-Mag) 64 Mg Tablet 64 MG PO DAILY Prescribed by: TENISHA WHEATLEY DO Metformin (Metformin) 500 Mg Tablet 1,000 MG PO BID (Reported) Pantoprazole DR (Pantoprazole DR) 20 Mg Tablet.dr 20 MG PO DAILYAC Prescribed by: BRODERICK GOFF MD As needed ([Acetaminophen]) 325 MG TABLET 975 MG PO Q6H PRN PRN For Pain Prescribed by: BRODERICK GOFF MD Polyethylene Glycol 3350 (Miralax) 17 Gm Powd.pack 17 GM PO DAILY PRN PRN For Constipation Prescribed by: BRODERICK GOFF MD Sennosides (Senna) 8.6 Mg Tablet 17.2 MG PO BID PRN PRN For Constipation Prescribed by: BRODERICK GOFF MD Zolpidem (Zolpidem) 5 Mg Tablet 5 MG PO HS PRN PRN For Insomnia (Reported) Miscellaneous Medications Melatonin (Melatonin) 1 Mg Tablet 3 MG PO (Reported) Followup Plan Disposition: Patient is being discharged to [facility] in [facility]. Discharge Diet: Heart Healthy, Diabetic Discharge Activity: Other (Patient is to be non weight bearing to the right lower extremity for six weeks. Toe touching only right lower extremity.) Follow-up Provider: Weston Moreira PA-C Follow-up with PCP in: 1 week Provider: Rinku Gamble MD Follow-up in: 2 weeks Time spent Time spent on discharging this patient was greater than 35 minutes, over half of which was involved in counseling and coordination of care. Shin Goff MD Oct 14, 2016 23:07
== END 2016-10-14 14:00 | DRG 482 ==
LOC: EDUNIT# 13:31 → SED 13:31 → EDBD 13:31 → OSC 16:24
PROVIDERS: ADMIT Family Medicine; ATTEND Family Medicine
PROC: 0QS636Z Reposition Right Upper Femur with Intramedullary Internal Fixation Device, Percutaneous Approach (ICD-10-PCS; principal; 2016-10-11 15:15)
DX: S72.141A Displaced intertrochanteric fracture of right femur, initial encounter for closed fracture (principal); W18.39XA Other fall on same level, initial encounter; Y93.89 Activity, other specified; Y92.511 Restaurant or cafe as the place of occurrence of the external cause; G47.33 Obstructive sleep apnea (adult) (pediatric); I10 Essential (primary) hypertension; E78.5 Hyperlipidemia, unspecified; M81.0 Age-related osteoporosis without current pathological fracture; E11.9 Type 2 diabetes mellitus without complications; E03.9 Hypothyroidism, unspecified; F32.9 Major depressive disorder, single episode, unspecified; E83.42 Hypomagnesemia; G30.9 Alzheimer's disease, unspecified; F02.80 Dementia in other diseases classified elsewhere, unspecified severity, without behavioral disturbance, psychotic disturbance, mood disturbance, and anxiety; D64.9 Anemia, unspecified